=== PATIENT | female | born 1960 | race Caucasian/White ===

== ENCOUNTER → 2017-06-01 10:02 | Outpatient (CLI) | payer OTHER, SELFPAY ==
--- NOTE | 2017-06-01 10:09 | XR_ITS ---
XR ankle RT min 3V COMPARISON: None HISTORY: Ankle pain TECHNIQUE: AP lateral and oblique views FINDINGS: The medial lateral malleolus appear intact iliac mortise is normal. There is mild diffuse soft tissue swelling both medially and laterally. There is a very tiny calcaneal spur at insertion of plantar tendon. IMPRESSION: Mild diffuse soft tissue swelling though if the patient is somewhat obese cyst could explain these findings as well. No acute bony abnormality is noted.
== END ==
PROVIDERS: PCP Family Medicine; Visit Provider Family Medicine
DX: M25.571 Pain in right ankle and joints of right foot (principal)
CPT/HCPCS: 73610

== ENCOUNTER → 2019-08-25 16:38 | Outpatient (CLI) | payer BC, SELFPAY ==
[2019-08-27 13:31] LABS: Covid-19 Nasal PCR Sendout Lex Not Detected
== END ==
PROVIDERS: PCP Family Medicine; Visit Provider Family Medicine
DX: Z03.818 Encounter for observation for suspected exposure to other biological agents ruled out (principal); Z11.59 Encounter for screening for other viral diseases
CPT/HCPCS: U0004

== ENCOUNTER → 2019-10-17 09:46 | Outpatient (CLI) | payer BC, OTHER, SELFPAY ==
--- NOTE | 2019-10-17 09:52 | CT_ITS ---
PROCEDURE: CT ABDOMEN PELVIS WO CON CLINICAL INDICATION: LLQ ABD PAIN Pt c/o llq pain with constipation and nausea COMPARISON: No exams were available for comparison TECHNIQUE: Axial images obtained with sagittal and coronal reformats. All CT scans at the facility use one or more dose reduction, viz: automated exposure control, ma/kV adjustment per patient size (including targeted exams where dose is matched to indication, i.e. head), or iterative reconstruction technique. FINDINGS: LOWER THORAX: There are atelectatic or fibrotic changes in the right middle lobe and left lower lobe. ABDOMEN & PELVIS: The liver, spleen adrenal glands, and pancreas have an unremarkable appearance. On image number 36 series 3 there is a calcific density posterior to the portal vein and may be within the cystic duct. This could be confirmed with MRCP. No renal or ureteral calculi. There is a prominent umbilical abdominal wall hernia containing a loop transverse colon. No intestinal obstruction or free air is evident. There is haziness of the mesenteric fat in the lower abdomen centrally and toward the right posterior to the region of the hernia. There are few small mesenteric lymph nodes in the right lower quadrant. No evidence of diverticulitis or appendicitis. No pelvic mass or abnormal fluid collection. No acute bony findings. IMPRESSION: 1. Prominent umbilical hernia containing a loop of transverse colon without evidence of intestinal obstruction. 2. Infiltration of the mesenteric fat in the central abdomen and slightly toward the right. This is nonspecific and could be seen with inflammatory/infectious changes. Neoplasm is not excluded and follow-up is suggested. Mesenteric adenitis is a consideration. 3. Possible small stone within the cystic duct of the gallbladder. This may be confirmed with MRCP. Dictated by: Yunier Barboza MD 10/18/2019 11:57 Yunier Barboza MD in [place] 10/18/2019 11:57
== END ==
PROVIDERS: PCP Family Medicine; Visit Provider Family Medicine
DX: R10.32 Left lower quadrant pain (principal)
CPT/HCPCS: 74176

== ENCOUNTER → 2021-06-06 07:42 | Outpatient (CLI) | payer BC, OTHER, SELFPAY ==
[2021-06-06 11:03] LABS: Alanine Aminotransferase 24 U/L (12-78); Albumin/Globulin Ratio 1.3 (1.1-1.8); Alkaline Phosphatase 73 U/L (38-126); Anion Gap 11.9 mEq/L (5-15); Aspartate Amino Transferase 27 U/L (14-36); Bilirubin,Total 0.8 mg/dl (0.2-1.3); Blood Urea Nitrogen 12 mg/dl (7-17); Calcium 9.1 mg/dl (8.4-10.2); Carbon Dioxide 27 mmol/L (22.0-30.0); Chloride 106 mmol/L (98-107); Chol/HDL Ratio 4.2 (1-3.5); Cholesterol 180 mg/dl (140-200); Estimated Glomerular Filt Rate 86 ml/min (>60); GFR (African American) 104 ML/MIN (>60); Globulin 3.2 g/dL (1.3-3.2); Glucose 109 mg/dl (74-100); HDL Cholesterol 43 mg/dl (40-60); Potassium 3.9 mmoL/L (3.5-5.1); Sodium 141 mmol/L (136-145); Total Protein,Serum 7.2 g/dl (6.3-8.2); Triglycerides 172 mg/dl (30-150); VLDL Cholesterol 34 mg/dL (0-40)
[2021-06-06 11:13] LABS: Direct LDL Cholesterol 90.41 mg/dL (100-129)
[2021-06-06 11:33] LABS: Thyroid Stimulating Hormone 0.06 uIU/mL (0.465-4.68)
== END ==
PROVIDERS: Visit Provider Family Medicine
DX: I10 Essential (primary) hypertension (principal); E78.5 Hyperlipidemia, unspecified; E03.9 Hypothyroidism, unspecified
CPT/HCPCS: 36415; 80053; 80061; 84443

== ENCOUNTER → 2021-11-28 15:41 | Outpatient (CLI) | payer BC, OTHER, SELFPAY | PROVIDERS: PCP Family Medicine; Visit Provider Family Medicine | DX: U07.1 COVID-19 (principal) | CPT/HCPCS: C9803; U0003; U0005 ==

== ENCOUNTER → 2023-01-05 09:37 | Outpatient (CLI) | payer BC, OTHER, SELFPAY ==
--- NOTE | 2023-01-05 09:45 | MM_ITS ---
PROCEDURE INFORMATION: Exam: MG Bilateral Screening 3D Mammography Exam date and time: 01/05/2023 9:52 AM Age: 62 years old Clinical indication: Screening examination. Her mother had breast cancer in her 60s. TECHNIQUE: Imaging protocol: Bilateral Screening tomosynthesis and 2D mammography including computer-aided detection (CAD) when performed. COMPARISON: No relevant prior studies available. If prior mammograms are provided, I am happy to add an addendum. FINDINGS: MAMMOGRAPHY: Breast composition: There are scattered areas of fibroglandular density. Mass: No suspicious mass. Architectural distortion: None. Calcifications: No suspicious calcifications. Asymmetric density: None. Skin thickening: None. Axillary adenopathy: None. IMPRESSION: No mammographic evidence of malignancy. Annual screening is recommended unless otherwise clinically indicated. ASSESSMENT: BI-RADS Category 1: Negative
== END ==
PROVIDERS: PCP Family Medicine; Visit Provider Family Medicine
DX: Z12.31 Encounter for screening mammogram for malignant neoplasm of breast (principal)
CPT/HCPCS: 77063; 77067

== ENCOUNTER → 2023-02-21 10:10 | Outpatient (CLI) | payer BC, OTHER, SELFPAY ==
[2023-02-21 11:57] LABS: Blood Urea Nitrogen 11 mg/dl (7-17); Estimated Glomerular Filt Rate 73 ml/min (>60); GFR (African American) 89 ML/MIN (>60)
== END ==
PROVIDERS: PCP Family Medicine; Visit Provider Surgery
DX: K42.9 Umbilical hernia without obstruction or gangrene (principal)
CPT/HCPCS: 82565; 84520

== ENCOUNTER 2023-02-28 12:42 | Outpatient (CLI) | payer BC, OTHER, SELFPAY ==
--- NOTE | 2023-02-28 12:42 | CT_ITS ---
FINAL REPORT CLINICAL HISTORY: umbilical hernia. COMPARISON: 10/17/2019 FINDINGS: CT OF THE ABDOMEN AND PELVIS WITH CONTRAST Axial CT images of the abdomen and pelvis were obtained after the administration of oral and iv contrast. Coronal and sagittal reformatted images were also obtained and reviewed.This study was performed with techniques to keep radiation doses as low as reasonably achievable (ALARA). Individualized dose reduction techniques using automated exposure control or adjustment of mA and/or kV according to the patient's size were employed. Abdomen: Mild atelectasis versus scar is present in the lung bases.. The heart is normal in size. The liver has an unremarkable appearance, without evidence of mass or biliary ductal dilatation. The spleen is unremarkable. No adrenal mass is present. The pancreas has an unremarkable appearance. The kidneys are normal, without evidence of mass or hydronephrosis. The aorta is normal in caliber. There is no free fluid or adenopathy. There is a large umbilical hernia present, also seen on the prior CT of 2019. There is nonobstructed transverse colon present in the hernia sac. The orifice of the hernia measures 39 mm in diameter, which is stable since the prior exam of 2019. However there is enlargement in the diameter of the sac, measuring 130 mm on today's examination. Pelvis: The appendix is not well-visualized. The urinary bladder is unremarkable. No inflammatory process is seen. There is no evidence of mass or adenopathy. There is no evidence of bowel obstruction. IMPRESSION: Large umbilical hernia, with the orifice stable in size when compared to the prior exam, but the diameter of the hernia sac has enlarged. Reviewed, Interpreted and Dictated by Seven Qureshi III, MD Transcribed by Pamela Travis Authenticated and [facility]
[2023-02-28] MEDS: BARIUM SULFATE(READI-CAT2);450ML BOTTLE 450 ML PO (13:43)
[2023-02-28] MEDS: IOPAMIDOL-370 (76%);100ML BOTTLE 75 ML IV (13:43)
== END 2023-02-28 23:59 ==
LOC: RAD 12:42
PROVIDERS: PCP Family Medicine; Visit Provider Surgery
DX: K42.9 Umbilical hernia without obstruction or gangrene (principal)
CPT/HCPCS: 74177; Q9967

== ENCOUNTER 2023-03-23 08:39 | Outpatient (CLI) | payer BC, OTHER, SELFPAY ==
--- NOTE | 2023-03-23 08:48 | ECG_ITS ---
APPROVED REPORT Exam: Resting ECG HR:63 bpm ECG Measurements Heart Rate 63 AXES ND 140 P 56 QRSd 88 QRS 52 QT 419 T 59 QTc 427 Conclusion SINUS RHYTHM LOW QRS VOLTAGE IN PRECORDIAL LEADS [QRS DEFLECTION < 1.0 mV IN CHEST LEADS] BORDERLINE ECG UNCONFIRMED REPORT Electronically signed by : Dain Willis MD 03/23/2023 14:35:25
[2023-03-23 09:15] LABS: Basophils # 0.1 K/mm3 (0-0.2); Basophils % 0.9 % (0.1-2.0); Eosinophils # 0.2 K/mm3 (0.0-0.4); Eosinophils % 3.4 % (0.1-12.0); Hematocrit 47.5 % (37.0-47.0); Hemoglobin 16.4 g/dL (12.2-16.2); Lymphocytes # 2.1 K/mm3 (0.7-4.5); Lymphocytes % 41.8 % (10-50); Mean Corpuscular HGB Conc 34.4 g/dL (31.8-35.4); Mean Corpuscular Hemoglobin 29.9 pg (27.0-31.2); Mean Platelet Volume 7.1 fl (7.4-10.4); Monocytes # 0.3 K/mm3 (0.1-1.0); Monocytes % 5.6 % (1.7-9.3); Neutrophils # 2.4 K/mm3 (1.8-7.8); Neutrophils % 48.2 % (37.0-80.0); Platelet Count 234 K/mm3 (142-424); Red Blood Count 5.46 M/mm3 (4.20-5.40); Red Cell Distribution Width 13.7 % (11.5-17.5)
[2023-03-23 09:50] LABS: Blood Urea Nitrogen 10 mg/dl (7-17); Calcium 9.8 mg/dl (8.4-10.2); Carbon Dioxide 27 mmol/L (22.0-30.0); Chloride 104 mmol/L (98-107); Estimated Glomerular Filt Rate 73 ml/min (>60); GFR (African American) 88 ML/MIN (>60); Glucose 113 mg/dl (74-100); Sodium 140 mmol/L (136-145)
== END 2023-03-23 23:59 ==
LOC: LAB 08:40
PROVIDERS: PCP Family Medicine; Visit Provider Surgery
DX: K42.9 Umbilical hernia without obstruction or gangrene (principal)
CPT/HCPCS: 36415; 80048; 85025; 93005

== ENCOUNTER 2023-04-02 07:43 | Day surgery (SDC) | payer BC, OTHER, SELFPAY ==
--- NOTE | 2023-03-29 13:31 | SUR.PREOP ---
Attempted twice, as well as called pt's husbands # to pre op pt/ see if they are able to move up in the schedule. Unable to get ahold of anyone at this time. Will try again at later.
[2023-03-29 15:08] VITALS: BMI 34.4
[2023-04-02] VITALS (12 sets, daily range): BP systolic 88–153; BP diastolic 48–85; PULSE 53–107; RESP 14–18; TEMP 36.5–43; O2SAT 88–99
[2023-04-02] MEDS: LACTATED RINGERS 1000ML 1,000 ML 25 ML IV (07:54)
--- NOTE | 2023-04-02 08:11 | EXP.ANES.CKL ---
[facility] Disclaimer: The information contained in this section may have been updated after the patient was seen, as this information can be updated by other users. 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 Family history of cancer History of anxiety Hypertension Surgical History No significant past surgical history Family History Other Family history of cancer Social History Smoking Status: Never smoker alcohol intake: never substance use type: denies use current occupational status: retired Travel in the last 8 weeks: None [facility] Anesthesia Checklist Patient Identification Patient Identification: Arm Band and Verbal (Name & ) Structural Data Admitted From: Home Planned Operative Procedure/s: VHR Consent for Planned Operative Procedure(s) Verified: Yes Verified Documents: Surgical Consent and History and Physical NPO Status Verified Time NPO: 20:00 Chart Verification Results Verified: CBC, BMP and ECG Additional verifications Patient : No Anesthesia Reactions: No Hx Blood Transfusions: No Blood Transfusion Reaction: No Cardiovascular Assessment Heart Sounds: S1 & S2 Pulse Rhythm: Irregular Peripheral Edema: No Airway Assessment Mallampati Score:: Class II C-Spine Mobility Assessed: Yes (Limited extension) TMJ Mobility Assessed: Yes Dentition: Edentulous Neurological Assessment Level of Consciousness: Awake, Alert, Appropriate and Follows Commands Hx Seizures: No Numbness or tingling in extremities: No Anesthesia Plan Anesthesia Risk discussed: Yes Anesthesia Plan: Verified ASA Class: III Anesthesia Type: General
[2023-04-02] MEDS: LIDOCAINE 1% 20ML MDV 20 ML ×2 (09:39)
[2023-04-02] MEDS: ROPIVACAINE 0.5% 30ML VIAL 150 MG (09:39)
[2023-04-02] MEDS: CEFAZOLIN SODIUM 2 GM in 0.9 % SODIUM CHLORIDE 100 ML IV (09:58)
[2023-04-02] MEDS: CLINDAMYCIN PHOSPHATE/D5W 900 MG/50 ML PIGGYBACK 50 MG (11:43)
--- NOTE | 2023-04-02 12:03 | SUR.OPER ---
1200- patient family updated about patients current status via Anika Robins.
--- NOTE | 2023-04-02 12:41 | P.OP_ITS ---
Date of procedure: 04/02/23 Pre-op Diagnosis:: Ventral hernia Post-op Diagnosis:: Chronically incarcerated ventral hernia containing large amount of omentum and transverse colon Procedure performed:: Laparoscopic ventral hernia repair with placement of 15.2 cm circular Bard Ventralight mesh Surgeon:: Seven Freeman MD Anesthesia: JOSELO Estimated blood loss (mL): 15 Clinical Note:: Patient presents for ventral hernia repair. Patient presented to the office essentially as a self-referral for umbilical hernia. Her primary care provider is Chandra Fernández MD. She describes an umbilical hernia present for many years. She states that it was present since the of her child. She has never had surgery. It had never caused her any problems but she states that over the past 5 to 6 years it has increased in size. She has had some discomfort at the area over about 6 months. 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 She states that this seems to exacerbate the discomfort. She did undergo CT scan about 3 years ago in September 2019 which revealed prominent umbilical hernia containing a loop of transverse colon. Review of these films appear to show approximately a 4.5 cm defect. Given the several year duration between last CT scan she underwent repeat CT scan. CT scan reveals stable size of the hernia defect measuring about 4 cm. However hernia sac has increased in size. She has a loop of nonobstructing transverse colon present. Options were discussed with the patient. Plan was made for attempt at laparoscopic repair. Operative findings:: She had a defect measuring about 4 or 5 cm. However there was a large hernia sac with an incredibly significant amount of herniated omentum as well as loop of transverse colon. Operative note:: Consent was obtained patient was taken to the operating room. She was given preoperative intravenous antibiotic. In the operating room she was placed in a supine position. General anesthesia was induced via endotracheal tube. Abdomen was prepped and draped in the standard surgical fashion. Through left subcostal 5 mm incision optical trocar was inserted. Intra-abdominal contents were visualized. Additional 5 mm trocar was inserted in the left lower abdomen. Hernia was identified. There was herniated omentum. Some traction was placed after it was grasped with a [place] and minimal amount was reduced. Ultimately additional left lower abdominal 5 mm trocar, 12 mm right subcostal trocar, and right lower quadrant 5 mm trocars were placed. Very prolonged attempt was made at reducing the hernia contents. This was done carefully meticulously as there was noted to be transverse colon herniated as well. After approximately 1-1/2 hours of careful dissection hernia contents in their entirety were able to be reduced. Inspection was then carried out of the large amount of omentum which was present within the hernia sac as well as the transverse colon was carefully inspected. There was no obvious notable injury. Therefore at this time attention was turned to repair. She did have a very large hernia sac although the defect was moderate. Hernia sac was left in situ as resection of this pr nilsa virtually impossible. A 6 inch circular (15.2 cm) Bard Ventralight mesh was brought on the field. The anterior abdominal wall was marked for placement site. It was rolled and inserted into the peritoneal cavity through the 12 mm trocar site. The balloon positioning system insufflation tubing was brought through the midportion of the hernia through a tiny less than 1 mm incision over the hernia. Balloon positioning system was inflated. Mesh was secured around its periphery with the OPTi fix device placing several tacks in 4 corners. Once it was secured the balloon positioning system was deflated and removed through the 12 mm trocar site. Mesh was then secured around its periphery with the OPTi fix device with several tacks placed more medially to help eliminate space over the mesh. Repair appeared adequate with good overlap. The 12 mm trocar was then removed. The site was closed with the laparoscopic Ananda close device. Remaining trocars were then removed as CO2 pneumoperitoneum was evacuated. All incisions were closed with 4-0 Monocryl in a subcuticular fashion after injection of local anesthetic. Dermabond was applied. Large bulky pressure dressing was placed at the site of the hernia. Condition: stable Disposition: PACU Complications:: None immediately apparent
--- NOTE | 2023-04-02 12:47 | EXP.ANES.I ---
[facility] Anesthesia Record Part I Anesthesia Record I Intake, IV Amount: 1,500 Hydration: Adequate Estimated blood loss (mL): 100 Urine output (mL): 100 Blood Products used (#): none Blood Pressure: 114/72 SaO2: 90 Pulse Rate: 61 Airway Patency: Patent Respiratory Rate: 16 Temperature: 97.8 F Patient is:: Drowsy and Stable Stable to PACU at:: 12:41
--- NOTE | 2023-04-02 13:33 | SUR.PHASEII ---
1325 SHIMON Casey aware of bp. she is at bedside.
--- NOTE | 2023-04-05 08:52 | EXP.ANES.II ---
[facility] Anesthesia Record Part II Anesthesia Record Part II Discharge Time: 13:06 Destination: Surgical Day Care (OP Surgery) PACU nurse assessment reviewed?: Yes Patient Condition:: Good Anesthesia Complications:: None Swallowing reflex intact?: Yes Airway Patency: Patent Cyanosis?: No Blood Pressure: 109/69 SaO2: 94 Respiratory Rate: 18 Pulse Rate: 68 Temperature: 97.7 F Mental Status: Alert & Oriented Pain level:: 0 Nausea and/or vomitting:: None Intake, IV Amount: 0 Hydration: Adequate
[2023-04-05 08:53] VITALS: BP 109/69; PULSE 68; RESP 18; TEMP 36.5; O2SAT 94
== END 2023-04-02 14:13 | disposition home or self-care (01) ==
PROVIDERS: PCP Family Medicine; Visit Provider Surgery
PROC: 0WQF4ZZ Repair Abdominal Wall, Percutaneous Endoscopic Approach (ICD-10-PCS; CPT 49594; principal; 2023-04-02 09:15)
DX: K43.6 Other and unspecified ventral hernia with obstruction, without gangrene (principal)
CPT/HCPCS: 49594; 96374; J3490; C1781; J0131; J2405

== ENCOUNTER 2023-05-29 09:58 | Outpatient (CLI) | payer BC, OTHER, SELFPAY ==
[2023-05-29 10:22] LABS: Basophils # 0.1 K/mm3 (0-0.2); Eosinophils # 0.1 K/mm3 (0.0-0.4); Eosinophils % 1.5 % (0.1-12.0); Hematocrit 40.9 % (37.0-47.0); Hemoglobin 13.6 g/dL (12.2-16.2); Lymphocytes # 1.6 K/mm3 (0.7-4.5); Lymphocytes % 23.9 % (10-50); Mean Corpuscular HGB Conc 33.3 g/dL (31.8-35.4); Mean Corpuscular Hemoglobin 28.8 pg (27.0-31.2); Mean Corpuscular Volume 86.3 fl (81-99); Mean Platelet Volume 7.2 fl (7.4-10.4); Monocytes # 0.4 K/mm3 (0.1-1.0); Monocytes % 5.6 % (1.7-9.3); Neutrophils # 4.6 K/mm3 (1.8-7.8); Platelet Count 364 K/mm3 (142-424); Red Blood Count 4.74 M/mm3 (4.20-5.40); Red Cell Distribution Width 13.9 % (11.5-17.5); White Blood Count 6.8 K/mm3 (4.8-10.8)
[2023-05-29 10:47] LABS: Alanine Aminotransferase 16 U/L (12-78); Albumin Level 3.9 g/dl (3.5-5.0); Albumin/Globulin Ratio 1.1 (1.1-1.8); Alkaline Phosphatase 85 U/L (38-126); Anion Gap 10.9 mEq/L (5-15); Aspartate Amino Transferase 23 U/L (14-36); Bilirubin,Total 0.6 mg/dl (0.2-1.3); Blood Urea Nitrogen 8 mg/dl (7-17); Calcium 9.8 mg/dl (8.4-10.2); Carbon Dioxide 26 mmol/L (22.0-30.0); Chloride 106 mmol/L (98-107); Estimated Glomerular Filt Rate 85 ml/min (>60); GFR (African American) 103 ML/MIN (>60); Globulin 3.4 g/dL (1.3-3.2); Glucose 109 mg/dl (74-100); Potassium 3.9 mmoL/L (3.5-5.1); Sodium 139 mmol/L (136-145); Total Protein,Serum 7.3 g/dl (6.3-8.2)
== END 2023-05-29 23:59 ==
LOC: LAB 09:59
PROVIDERS: PCP Family Medicine; Visit Provider Surgery
DX: K42.9 Umbilical hernia without obstruction or gangrene (principal)
CPT/HCPCS: 36415; 80053; 85025

== ENCOUNTER 2023-05-30 14:24 | Outpatient (CLI) | payer BC, OTHER, SELFPAY ==
--- NOTE | 2023-05-30 14:32 | CT_ITS ---
FINAL REPORT TECHNIQUE: After the administration of oral and intravenous contrast, axial images were obtained through the abdomen and pelvis by computed tomography. The study was performed with techniques to keep radiation dose as low as reasonably achievable, (ALARA). Individual dose reduction techniques using automated exposure control or adjustment of mA and/or kV according to the patient's size were employed. CLINICAL HISTORY: umbilical hernia COMPARISON: 02/28/2023 FINDINGS: Abdomen: There is mild scarring in the lung bases. The liver is normal in size and attenuation. The spleen is unremarkable. The adrenals are normal. The pancreas is unremarkable. The kidneys enhance appropriately. The aorta is normal in caliber. There is no free fluid or adenopathy. Pelvis: The appendix is normal. There has been interval repair of the umbilical hernia. In the region of the hernia sac is a 12 x 8 x 9.6 cm heterogeneous fluid collection, likely represents a hematoma. Abscess is not excluded. The urinary bladder is unremarkable. There is no free fluid or adenopathy. IMPRESSION: Interval repair of the umbilical hernia with a heterogeneous fluid collection in this region, likely represents a hematoma but abscess is not excluded. Since this is immediately below the skin, it is accessible to drainage if desired. Reviewed, Interpreted and Dictated by Seven Qureshi III, MD Transcribed by Dora Negron Authenticated and [facility]
[2023-05-30] MEDS: IOPAMIDOL-370 (76%);100ML BOTTLE 75 ML IV (15:08)
[2023-05-30] MEDS: SODIUM CHLORIDE 0.9% 10ML SYR (RAD ONLY) 10 ML IV (15:08)
[2023-05-30] MEDS: BARIUM SULFATE(READI-CAT2);450ML BOTTLE 450 ML PO (15:08)
== END 2023-05-30 23:59 ==
LOC: RAD 14:25
PROVIDERS: PCP Family Medicine; Visit Provider Surgery
DX: K42.9 Umbilical hernia without obstruction or gangrene (principal)
CPT/HCPCS: 74177; Q9967

== ENCOUNTER 2023-08-04 09:50 | Emergency (ER) | payer BC, OTHER, SELFPAY ==
[2023-08-04 10:20] VITALS: BP 110/80; PULSE 93; RESP 20; TEMP 37.1; O2SAT 97; BMI 32.5
--- NOTE | 2023-08-04 10:33 | ED_ITS ---
Discharge Plan Disposition Patient Disposition: Home, Self-Care Condition: Good Prescriptions Prescriptions: New azithromycin 250 mg tablet 250 mg PO DIRECTED Qty: 6 0RF Rx Instructions: Take two (2) tablets on day #1, then one (1) tablet day #2 thru #5 prednisone 20 mg tablet 20 mg PO BID Qty: 10 0RF No Action levothyroxine 100 mcg tablet 100 mcg PO DAILY Patient Comments: TAKE ONE TABLET BY MOUTH EVERY DAY amlodipine-benazepril 10-20 mg capsule 1 cap PO DAILY Patient Comments: TAKE ONE CAPSULE BY MOUTH EVERY DAY sertraline 25 mg tablet 25 mg PO DAILY Patient Comments: TAKE ONE TABLET BY MOUTH ONCE DAILY pantoprazole 40 mg tablet,delayed release (DR/EC) 40 mg PO DAILY pravastatin 40 mg tablet 40 mg PO DAILY Referrals Follow up/Referrals: Cecilio Fernández MD [Primary Care Provider] - See instructions Activity Restrictions/Add. Instructions Additional Instructions/Restrictions: Start antibiotic patient to take as ordered for a full length of time even if you feel better. Sinus infections do not get better overnight. It may take 2-3 days to notice much improvement so be sure to use conservative measures as discussed for symptoms. Increase fluids Humidifier/vaporizer as needed Tylenol and ibuprofen as needed for fever or pain. If symptoms do not improve or get worse return or be seen in the ER Follow-up with primary care this week Clinical Impressions Clinical Impression: Acute maxillary sinusitis, Bronchitis Instructions Patient Instructions: DI for Sinusitis, DI for Acute Bronchitis Discharge ED Provider: [facility] ([facility])Abiodun [facility] HPI General Stated complaint: cough, congestion Mode of Arrival: Ambulatory Source of Information: Patient Limitations: No Limitations Time Seen by Provider: 08/04/23 10:33 Description of Symptoms (Recalled from Triage Doc. by RN): PATIENT C/O HEADACHE, CHEST CONGESTION, AND COUGH X 3 DAYS HEENT Symptoms (Recalled from RN notes): Yes Resp Symptoms (Recalled from RN notes): Yes Skin Symptoms (Recalled from RN notes): No MS Symptoms (Recalled from RN notes): No Functional Status (Recalled from RN notes): WNL History of Present Illness Provider Complaint: 63 yr old female presents for c/o sinus pressure, coughing up green/yellow sputum,kimble and sinus congestion for 3 days Related Data Home Medications Medication Instructions Recorded Confirmed amlodipine 10 mg-benazepril 20 mg 1 cap PO DAILY 02/21/23 08/04/23 capsule levothyroxine 100 mcg tablet 100 mcg PO DAILY 02/21/23 08/04/23 pantoprazole 40 mg tablet,delayed 40 mg PO DAILY 02/21/23 08/04/23 release pravastatin 40 mg tablet 40 mg PO DAILY 02/21/23 08/04/23 sertraline 25 mg tablet 25 mg PO DAILY 02/21/23 08/04/23 Previous Rx's Medication Instructions Recorded azithromycin 250 mg tablet 250 mg PO DIRECTED #6 tabs 08/04/23 prednisone 20 mg tablet 20 mg PO BID #10 tabs 08/04/23 Allergies Allergy/AdvReac Type Severity Reaction Status Date / Time No Known Allergies Allergy Verified 06/28/23 11:18 Worker's Comp Is this a Worker's Comp case?: No [facility] Disclaimer: The information contained in this section may have been updated after the patient was seen, as this information can be updated by other users. 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) Smoking Status: Never smoker alcohol intake: never substance use type: denies use current occupational status: retired Travel in the last 8 weeks: None ROS Obtained: Yes All systems reviewed & no additional complaints except as documented Constitutional Constitutional: Reports system reviewed and no additional complaints, except as documented Eyes Eyes: Reports system reviewed and no additional complaints, except as documented ENT Ears, Nose, Mouth, and Throat: Reports system reviewed and no additional complaints, except as documented, Reports as per HPI, Reports facial pain, Reports nasal congestion, Reports nasal discharge, Reports sinus pain, Reports sinus pressure and Reports sore throat Cardiovascular Cardiovascular: Reports system reviewed and no additional complaints, except as documented Respiratory Respiratory: Reports system reviewed and no additional complaints, except as documented Gastrointestinal Gastrointestingal: Reports system reviewed and no additional complaints, except as documented Musculoskeletal Musculoskeletal: Reports system reviewed and no additional complaints, except as documented Integumentary/Breasts Skin/Breast: Reports system reviewed and no additional complaints, except as documented Neurologic Neurologic: Reports system reviewed and no additional complaints, except as documented Endocrine Endocrine: Reports system reviewed and no additional complaints, except as documented Hematologic/Lymphatic Henatologic/Lymphatic: Reports system reviewed and no additional complaints, except as documented Allergic/Immunologic Allergic/Immunologic: Reports system reviewed and no additional complaints, except as documented Physical Exam General General appearance: alert and in no apparent distress Head Head exam: atraumatic Eye Eye exam: Present normal appearance and PERRL ENT ENT exam: Present mucous membranes moist and TM's normal bilaterally Expanded ENT Exam Nose exam: Present sinus tenderness Respiratory Respiratory exam: Present wheezes Cardiovascular Cardiovascular exam: Present regular rate and normal rhythm Neurological Exam Neurological exam: Present alert and oriented X3 Psychiatric Psychiatric exam: Present normal affect Skin Skin exam: Present warm and intact Lymphatic Lymphatic Findings: no adenopathy Medical Decision Making Medical Records Medical records reviewed: Yes I reviewed the patient's medical records. Javier Inquiry Pt receiving controlled substance: No Javier was queried for this patient: No Vital Signs: 08/04/23 10:20 Temperature 98.7 F Temperature Source Oral Pulse Rate [Left Brachial] 93 H Respiratory Rate 20 Blood Pressure [Left Arm] 110/80 Blood Pressure Mean [Left Arm] 90 Blood Pressure Source [Left Arm] Automatic Cuff Blood Pressure Position [Left Arm] Sitting 02 Sat by Pulse Oximetry 97 Oxygen Delivery Method Room Air
[2023-08-04 10:50] VITALS: BP 110/80; PULSE 93; RESP 20; TEMP 37.1; O2SAT 97
[2023-08-04 20:09] LABS: UTC Strep Screen (Rapid) Negative (Negative)
== END 2023-08-04 10:54 | disposition home or self-care (01) ==
PROVIDERS: Emergency Provider Nurse Practitioner Family; PCP Family Medicine
DX: J20.9 Acute bronchitis, unspecified (principal); J01.00 Acute maxillary sinusitis, unspecified; R51.9 Headache, unspecified; R05.9 Cough, unspecified; R09.81 Nasal congestion
CPT/HCPCS: 87880; 99204; 99212; G0463

== ENCOUNTER 2023-09-06 11:22 | Outpatient (CLI) | payer BC, OTHER, SELFPAY ==
[2023-09-06 11:41] LABS: Blood Urea Nitrogen 8 mg/dl (7-17); Estimated Glomerular Filt Rate 73 ml/min (>60); GFR (African American) 88 ML/MIN (>60)
== END 2023-09-06 23:59 | disposition home or self-care (01) ==
LOC: LAB 11:23
PROVIDERS: PCP Family Medicine; Visit Provider Surgery
DX: R10.9 Unspecified abdominal pain (principal)
CPT/HCPCS: 36415; 82565; 84520

== ENCOUNTER 2023-09-21 08:27 | Outpatient (CLI) | payer BC, OTHER, SELFPAY ==
--- NOTE | 2023-09-21 08:28 | CT_ITS ---
FINAL REPORT TECHNIQUE: Oral and IV contrast enhanced exam This study was performed with techniques to keep radiation doses as low as reasonably achievable, (ALARA). Individualized dose reduction techniques using automated exposure control or adjustment of mA and/or kV according to the patient''s size were employed. CLINICAL HISTORY: left flank pain COMPARISON: 05/30/2023 FINDINGS: Abdomen: Lung bases are clear. The gallbladder is unremarkable. Liver has an unremarkable CT appearance. The spleen, pancreas and adrenal glands are unremarkable. Kidneys show no mass or obstruction. No bowel obstruction or fluid collection is seen. There is a new midline abdominal wall hernia containing transverse colon. No associated obstruction identified. The hernia abuts a complex cystic mass of the abdominal wall. Lesion has a mildly thickened capsule. The mass measures 7.6 x 6.4 cm, was 12.8 x 9.6 cm. Pelvis: There is a alisa appendix as a normal variant. The uterus and ovaries are unremarkable. The bladder is normal. Pelvic bowel loops are unremarkable. No fluid collection or adenopathy is seen. IMPRESSION: Interval development of a lower central midline abdominal wall hernia containing transverse colon without obstruction. Decreased size of complex cystic mass of the abdominal wall. Reviewed, Interpreted and Dictated by Zoila Mccollum MD Transcribed by Dora Negron Authenticated and . [facility]
[2023-09-21] MEDS: IOPAMIDOL-370 (76%);100ML BOTTLE 75 ML IV (08:50)
[2023-09-21] MEDS: SODIUM CHLORIDE 0.9% 10ML SYR (RAD ONLY) 10 ML IV (08:50)
== END 2023-09-21 23:59 | disposition home or self-care (01) ==
LOC: RAD 08:28
PROVIDERS: PCP Surgery; Visit Provider Surgery
DX: K42.9 Umbilical hernia without obstruction or gangrene (principal); R10.9 Unspecified abdominal pain
CPT/HCPCS: 74177; Q9967

== ENCOUNTER 2023-12-08 08:55 | Emergency (ER) | payer BC, OTHER, SELFPAY ==
--- NOTE | 2023-12-08 09:07 | EXP.UTC ---
Discharge Plan Disposition Patient Disposition: Home, Self-Care Condition: Good Prescriptions Prescriptions: New amoxicillin-pot clavulanate 875-125 mg tablet 1 tab PO Q12H 10 Days Qty: 20 0RF No Action levothyroxine 100 mcg tablet 100 mcg PO DAILY Patient Comments: TAKE ONE TABLET BY MOUTH EVERY DAY amlodipine-benazepril 10-20 mg capsule 1 cap PO DAILY Patient Comments: TAKE ONE CAPSULE BY MOUTH EVERY DAY sertraline 25 mg tablet 25 mg PO DAILY Patient Comments: TAKE ONE TABLET BY MOUTH ONCE DAILY pantoprazole 40 mg tablet,delayed release (DR/EC) 40 mg PO DAILY pravastatin 40 mg tablet 40 mg PO DAILY Referrals Follow up/Referrals: Cecilio Fernández MD [Primary Care Provider] - See instructions Activity Restrictions/Add. Instructions Additional Instructions/Restrictions: Take medication as prescribed. Suck on some sour candy. Return to the ER if you have swelling that goes down in your neck/under your tongue, fever, pain making it hard for you to open your mouth. Take Tylenol/Ibuprofen as needed for pain. Clinical Impressions Clinical Impression: Acute parotitis Instructions Patient Instructions: DI for Parotitis-Adult Print Language Print Language: Irish Discharge ED Provider: Chandni Hilton [facility] General Stated complaint: right face pain pain and swollen, jaw pain Time Seen by Provider: 12/08/23 09:29 History of Present Illness Provider Complaint: Pt reports that she started having swelling on the right side of her face yesterday with pain in her jaw. She reports that she has been taking Tylenol/Ibuprofen for the pain. Related Data Home Medications ?Medication ?Instructions ?Recorded ?Confirmed amlodipine 10 mg-benazepril 20 mg 1 cap PO DAILY 02/21/23 12/08/23 capsule levothyroxine 100 mcg tablet 100 mcg PO DAILY 02/21/23 12/08/23 pantoprazole 40 mg tablet,delayed 40 mg PO DAILY 02/21/23 12/08/23 release pravastatin 40 mg tablet 40 mg PO DAILY 02/21/23 12/08/23 sertraline 25 mg tablet 25 mg PO DAILY 02/21/23 12/08/23 Previous Rx's ?Medication ?Instructions ?Recorded amoxicillin 875 mg-potassium 1 tab PO Q12H 10 days #20 tabs 12/08/23 clavulanate 125 mg tablet Allergies Allergy/AdvReac Type Severity Reaction Status Date / Time No Known Allergies Allergy Verified 10/16/23 08:43 [facility] Disclaimer: The information contained in this section may have been updated after the patient was seen, as this information can be updated by other users. 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 Family history of cancer History of anxiety Hypertension Surgical History History of hernia surgery No significant past surgical history Family History Other Family history of cancer Social History Smoking Status: Never smoker alcohol intake: never substance use type: denies use current occupational status: retired Travel in the last 8 weeks: None ROS Obtained: Yes All systems reviewed & no additional complaints except as documented Constitutional Constitutional: Reports system reviewed and no additional complaints, except as documented Eyes Eyes: Reports system reviewed and no additional complaints, except as documented ENT Ears, Nose, Mouth, and Throat: Reports system reviewed and no additional complaints, except as documented, Reports otalgia and Reports facial pain Cardiovascular Cardiovascular: Reports system reviewed and no additional complaints, except as documented Respiratory Respiratory: Reports system reviewed and no additional complaints, except as documented Gastrointestinal Gastrointestingal: Reports system reviewed and no additional complaints, except as documented Genitourinary Female Genitourinary: Reports system reviewed and no additional complaints, except as documented Musculoskeletal Musculoskeletal: Reports system reviewed and no additional complaints, except as documented Integumentary/Breasts Skin/Breast: Reports system reviewed and no additional complaints, except as documented Neurologic Neurologic: Reports system reviewed and no additional complaints, except as documented Endocrine Endocrine: Reports system reviewed and no additional complaints, except as documented Hematologic/Lymphatic Henatologic/Lymphatic: Reports system reviewed and no additional complaints, except as documented Allergic/Immunologic Allergic/Immunologic: Reports system reviewed and no additional complaints, except as documented Physical Exam General General appearance: alert and in no apparent distress Head Head exam: atraumatic and normocephalic Eye Eye exam: Present normal appearance Expanded ENT Exam External ear exam: Present other (swelling of right parotid gland. Pain expressed with palpitation) TM/Canal exam: Right TM: effusion Nasal speculum exam: Bilateral: normal Mouth exam: Present trismus (hurts when she opens her mouth, but is able to open) Teeth exam: Present other (no teeth) Throat exam: Present normal inspection Neck Neck exam: Present normal inspection Chest Chest inspection: Present normal inspection and symmetric chest wall rise Respiratory Respiratory exam: Present normal lung sounds bilaterally Cardiovascular Cardiovascular exam: Present regular rate and normal rhythm Abdominal Exam Abdominal exam: Present soft Extremities Exam Extremities exam: Present normal inspection Back Exam Back exam: Present normal inspection Neurological Exam Neurological exam: Present alert and oriented X3 Psychiatric Psychiatric exam: Present normal affect and normal mood Skin Skin exam: Present warm, dry and intact Lymphatic Lymphatic Findings: no adenopathy Medical Decision Making Medical Records Screening: Per USPSTF and CDC recommendations, given the prevalence of disease in our region, it is our hospital?s policy to screen for HIV and viral Hepatitis for all patients aged 18 and over and those with ongoing risk factors. Javier Inquiry Pt receiving controlled substance: No Javier was queried for this patient: No
[2023-12-08 09:09] VITALS: BP 143/58; PULSE 95; RESP 20; TEMP 37; O2SAT 98; BMI 33.6
[2023-12-08 10:00] VITALS: BP 143/58; PULSE 95; RESP 20; TEMP 37
== END 2023-12-08 10:03 | disposition home or self-care (01) ==
PROVIDERS: Emergency Provider Nurse Practitioner Family; PCP Family Medicine
DX: K11.0 Atrophy of salivary gland (principal)
CPT/HCPCS: 99213; G0381

== ENCOUNTER 2023-12-21 11:31 | Outpatient (CLI) | payer BC, OTHER, SELFPAY ==
--- NOTE | 2023-12-21 12:01 | ECG_ITS ---
APPROVED REPORT Exam: Resting ECG HR:56 bpm ECG Measurements Heart Rate 56 AXES MN 125 P 46 QRSd 89 QRS 24 QT 458 T 73 QTc 449 Conclusion SINUS BRADYCARDIA LOW QRS VOLTAGE IN PRECORDIAL LEADS [QRS DEFLECTION < 1.0 mV IN CHEST LEADS] NONSPECIFIC T-WAVE ABNORMALITY BORDERLINE ECG UNCONFIRMED REPORT Electronically signed by : Dain Willis MD 12/24/2023 08:39:52
[2023-12-21 12:18] LABS: Basophils # 0.1 K/mm3 (0-0.2); Basophils % 1.4 % (0.1-2.0); Eosinophils # 0.1 K/mm3 (0.0-0.4); Eosinophils % 2.1 % (0.1-12.0); Hematocrit 44.3 % (37.0-47.0); Hemoglobin 15.5 g/dL (12.2-16.2); Lymphocytes # 2.3 K/mm3 (0.7-4.5); Lymphocytes % 35.6 % (10-50); Mean Corpuscular HGB Conc 35.1 g/dL (31.8-35.4); Mean Corpuscular Hemoglobin 29.2 pg (27.0-31.2); Mean Corpuscular Volume 83.2 fl (81-99); Mean Platelet Volume 7.1 fl (7.4-10.4); Monocytes # 0.4 K/mm3 (0.1-1.0); Neutrophils # 3.5 K/mm3 (1.8-7.8); Neutrophils % 54.9 % (37.0-80.0); Platelet Count 263 K/mm3 (142-424); Red Blood Count 5.33 M/mm3 (4.20-5.40); Red Cell Distribution Width 14.7 % (11.5-17.5); White Blood Count 6.4 K/mm3 (4.8-10.8)
[2023-12-21 12:23] LABS: Chloride 106 mmol/L (98-107)
[2023-12-21 12:24] LABS: Potassium 3.9 mmoL/L (3.5-5.1); Sodium 139 mmol/L (136-145)
[2023-12-21 12:27] LABS: Anion Gap 9.9 mEq/L (5-15); Blood Urea Nitrogen 11 mg/dl (7-17); Calcium 9.5 mg/dl (8.4-10.2); Carbon Dioxide 27 mmol/L (22.0-30.0); Estimated Glomerular Filt Rate 85 ml/min (>60); GFR (African American) 103 ML/MIN (>60); Glucose 105 mg/dl (74-100)
== END 2023-12-21 23:59 | disposition home or self-care (01) ==
LOC: PREOP 11:32
PROVIDERS: PCP Family Medicine; Visit Provider Surgery
DX: K42.9 Umbilical hernia without obstruction or gangrene (principal)
CPT/HCPCS: 80048; 85025; 93005

== ENCOUNTER 2023-12-31 07:44 | Day surgery (SDC) | payer BC, OTHER, SELFPAY ==
[2023-12-21 15:05] VITALS: BMI 33.6
[2023-12-31] VITALS (9 sets, daily range): BP systolic 88–146; BP diastolic 56–85; PULSE 62–97; RESP 12–17; TEMP 36.1–36.6; O2SAT 86–98
[2023-12-31] MEDS: LACTATED RINGERS 1000ML 1,000 ML 25 ML IV (07:59)
--- NOTE | 2023-12-31 08:02 | EXP.ANES.CKL ---
[facility] Disclaimer: The information contained in this section may have been updated after the patient was seen, as this information can be updated by other users. 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 Urinary tract infection History of COVID-19 Irritable bowel syndrome (IBS) History of gastroesophageal reflux (GERD) Hypothyroid History of cataract Hyperlipidemia Family history of cancer History of anxiety Hypertension Surgical History History of hernia surgery Family History Other Family history of cancer Family history of diabetes mellitus type II Family history of hypothyroidism Family history of myocardial infarction Family history of ulcerative colitis Social History Smoking Status: Never smoker alcohol intake: never substance use type: denies use current occupational status: employed Travel in the last 8 weeks: None household members: spouse 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 caffeine: Yes [facility] Anesthesia Checklist Patient Identification Patient Identification: Arm Band and Verbal (Name & ) Structural Data Admitted From: Home Planned Operative Procedure/s: UHR Consent for Planned Operative Procedure(s) Verified: Yes Verified Documents: Surgical Consent NPO Status Verified Time NPO: 00:00 Chart Verification Results Verified: CBC, BMP and ECG Additional verifications Patient : No Anesthesia Reactions: No Hx Blood Transfusions: No Blood Transfusion Reaction: No Cephalosporin Allergy: No Cardiovascular Assessment Heart Sounds: S1 & S2 Peripheral Edema: No Airway Assessment Mallampati Score:: Class II C-Spine Mobility Assessed: Yes TMJ Mobility Assessed: Yes Dentition: Good Dentition Neurological Assessment Level of Consciousness: Awake, Alert, Appropriate and Follows Commands Hx Seizures: No Numbness or tingling in extremities: No Anesthesia Plan Anesthesia Risk discussed: Yes Anesthesia Plan: Verified ASA Class: III Anesthesia Type: General
[2023-12-31] MEDS: CEFAZOLIN SODIUM 2 GM in 0.9 % SODIUM CHLORIDE 100 ML IV (08:45)
[2023-12-31] MEDS: ROPIVACAINE 0.5% 30ML VIAL 150 MG (09:03)
[2023-12-31] MEDS: LIDOCAINE 1% 20ML MDV 20 ML (09:03)
--- NOTE | 2023-12-31 11:19 | P.OP_ITS ---
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 She had undergone laparoscopic ventral hernia repair on 04/02/2023 at which time she had placement of 15.[address] mesh for a 4 cm defect containing a large amount of omentum and transverse colon. She did have some issues with significant seroma which required aspiration on a couple of occasions. She has shown improvement in the apparent seroma. I did have her undergo a CT scan to check for any residual seroma. Interestingly this revealed findings of interval development of hernia containing nonobstructed transverse colon. This was discussed with her on her visit on 10/16/2023. I reviewed her CT scan and it appeared as though she likely had a defect measuring 3 x 5 cm. Operative findings:: She had some disruption of the mesh adherence to the fascia inferiorly with rec urrent hernia at the inferior aspect of the mesh with a defect measuring about 3 to 4 cm. There was chronically incarcerated omentum and some colon present within the defect. Operative note:: Consent was obtained and patient was taken the operating room. She was positioned in supine position. General anesthesia was induced via endotracheal tracheal tube. Naik catheter was placed. Abdomen was prepped and draped in the standard surgical fashion. Through left subcostal incision 5 mm optical trocar was inserted carefully into the peritoneal cavity and CO2 pneumoperitoneum was achieved to 15 mmHg. Laparoscopic surveillance was carried out. Most of the previously placed mesh was intact however the inferior aspect of the hernia there was some disruption of the mesh adherence to the fascia. Ultimately trocars were placed in the left lower quadrant with two 5 mm trocars, right subcostal 12 mm trocar, and ultimately right lower quadrant 5 mm trocar. Prolonged dissection was carried out dissecting free adhesions from the posterior aspect of the mesh using mostly blunt dissection with some use of KIMBER ultrasonic harmonic caitlyn. There was herniated transverse colon within the defect. Careful prolonged dissection was carried out using some blunt dissection, limited use of KIMBER ultrasonic harmonic caitlyn, and laparoscopic Metzenbaum dissection. Ultimately the contents of the hernia were able to be freed from the defect and returned to the peritoneal cavity. The skin was marked on the anterior abdomen with skin marker marking the fascial edges. Defect measured about 3 to 4 cm. Previously placed mesh was left in situ. Hernia sac was left in situ. 15.[address] mesh was brought onto the field. It was rolled and inserted into the peritoneal cavity. Through a tiny 1 or 2 mm incision in the central aspect of the hernia defect the positioning system insufflation tubing was brought through the anterior abdominal wall. Positioning system balloon was then inflated. This allowed mesh to be placed appropriately with good overlap. It covered the defect with generous overlap several centimeters off-center from previously placed mesh inferiorly. Mesh was secured in 4 corners using the OPTi fix device. The positioning system balloon was then removed from the peritoneal cavity. Mesh was secured around its periphery with the OPTi fix device. Several attacks were placed more centrally due to help eliminate space of the hernia. Repair appeared adequate. To reinforce the mesh overlapped position tiny incision was made at the upper aspect of the mesh and 2-0 Prolene fascial stay suture was placed using the [place] suture passer device. Similarly 2-0 Prolene fascial stay suture was placed inferiorly. Repair appeared adequate, intact, and hemostatic. Residual fluid was suctioned free. Incision in the right subcostal location was closed with a couple of 0 Vicryl sutures laparosc opically. Trocars were then removed as CO2 pneumoperitoneum was evacuated. Local anesthetic was infiltrated. Skin incisions were closed with 4-0 Monocryl in a subcuticular fashion. Steri-Strips and dressings were applied. Condition: stable Disposition: PACU Complications:: None immediately apparent
--- NOTE | 2023-12-31 11:29 | P.PNANES_ITS ---
[facility] Anesthesia Record Part I Anesthesia Record I Intake, IV Amount: 2,500 Hydration: Adequate Estimated blood loss (mL): 50 Urine output (mL): 250 Blood Pressure: 142/82 SaO2: 93 Pulse Rate: 81 Airway Patency: Patent Respiratory Rate: 12 Temperature: 97.3 F Patient is:: Awake and Stable Stable to PACU at:: 11:25
--- NOTE | 2024-01-02 10:21 | P.PNANES_ITS ---
[facility] Anesthesia Record Part II Anesthesia Record Part II Discharge Time: 11:55 Destination: Surgical Day Care (OP Surgery) PACU nurse assessment reviewed?: Yes Patient Condition:: Good Anesthesia Complications:: None Swallowing reflex intact?: Yes Airway Patency: Patent Cyanosis?: No Blood Pressure: 126/74 SaO2: 94 Respiratory Rate: 17 Pulse Rate: 64 Temperature: 97 F Mental Status: Alert & Oriented Pain level:: 2 Nausea and/or vomitting:: None Intake, IV Amount: 0 Hydration: Adequate
[2024-01-02 10:22] VITALS: BP 126/74; PULSE 64; RESP 17; TEMP 36.1; O2SAT 94
== END 2023-12-31 12:22 | disposition home or self-care (01) ==
PROVIDERS: PCP Family Medicine; Visit Provider Surgery
PROC: (CPT 49616; principal; 2023-12-31 09:30)
DX: K43.0 Incisional hernia with obstruction, without gangrene (principal)
CPT/HCPCS: 49616; 96374; J3490; C1781; J0690; J1100; J1885; J2250; J2405; J3010; J7120

== ENCOUNTER 2024-03-17 09:15 | Outpatient (CLI) | payer BC, OTHER, SELFPAY ==
[2024-03-17 10:37] LABS: Blood Urea Nitrogen 12 mg/dl (7-17); Estimated Glomerular Filt Rate 73 ml/min (>60); GFR (African American) 88 ML/MIN (>60)
== END 2024-03-17 23:59 | disposition home or self-care (01) ==
LOC: LAB 09:17
PROVIDERS: PCP Family Medicine; Visit Provider Surgery
DX: K42.9 Umbilical hernia without obstruction or gangrene (principal)
CPT/HCPCS: 36415; 82565; 84520

== ENCOUNTER 2024-03-28 07:41 | Outpatient (CLI) | payer BC, OTHER, SELFPAY ==
--- NOTE | 2024-03-28 07:42 | CT_ITS ---
FINAL REPORT TECHNIQUE: After the administration of oral and intravenous contrast, axial images were obtained through the abdomen and pelvis by computed tomography. Coronal and sagittal reconstructed images were obtained and reviewed. The study was performed with techniques to keep radiation dose as low as reasonably achievable, (ALARA). Individual dose reduction techniques using automated exposure control or adjustment of mA and/or kV according to the patient's size were employed. CLINICAL HISTORY: umbilical hernia oral and iv contrast hernia repair in Mar and Dec, COMPARISON: 09/21/2023 FINDINGS: Abdomen: There is scarring noted at the lung bases. The liver parenchyma is homogeneous and the liver measures up to 19 cm in craniocaudal dimension. The hepatic flexure is interposed into the right lobe of the liver. The gallbladder is present. The spleen appears unremarkable. The pancreas, adrenals, and kidneys appear unremarkable. There is a complex subcutaneous collection deep to the umbilicus. This collection demonstrates stranding, fluid, and a rounded area of relatively increased attenuation measuring up to 13 mm. The entire region measures 8.2 x 5.6 cm in craniocaudal and transverse dimensions. There is some protuberance of the midline anterior abdominal wall fascia deep to this collection. There is no definite herniation of bowel into this collection. There is no evidence of bowel obstruction. Pelvis: The appendix is not identified. The uterus is present. The urinary bladder is decompressed. There is no free fluid or adenopathy. IMPRESSION: Unusual complex subcutaneous collection at the site of the previously noted umbilical hernia. No definite herniation of bowel is seen on today's exam, but the appearance is unusual and chronic hematoma, abscess, and fat necrosis are all considerations. Surgical evaluation is recommended. Reviewed, Interpreted and Dictated by Aron Martel MD Transcribed by Jessica Epps Authenticated and . [facility]
[2024-03-28] MEDS: SODIUM CHLORIDE 0.9% 10ML SYR (RAD ONLY) 10 ML IV (08:14)
[2024-03-28] MEDS: IOPAMIDOL-370 (76%);100ML BOTTLE 75 ML IV (08:14)
[2024-03-28] MEDS: BARIUM SULFATE(READI-CAT2);450ML BOTTLE 450 ML PO (08:14)
== END 2024-03-28 23:59 | disposition home or self-care (01) ==
LOC: RAD 07:42
PROVIDERS: PCP Family Medicine; Visit Provider Surgery
DX: K42.9 Umbilical hernia without obstruction or gangrene (principal)
CPT/HCPCS: 74177; Q9967

== ENCOUNTER 2024-08-13 07:03 | Outpatient (CLI) | payer BC, OTHER, SELFPAY ==
[2024-08-13 08:06] LABS: Basophils % 0.7 % (0.1-2.0); Eosinophils # 0.2 Kmm3 (0.0-0.4); Eosinophils % 3.3 % (0.1-12.0); Hematocrit 46.3 % (37.0-47.0); Hemoglobin 15.3 g/dL (12.2-16.2); Immature Granulocytes # 0.03 10^3uL; Immature Granulocytes % 0.5 %; Lymphocytes # 2.1 K/mm3 (0.7-4.5); Lymphocytes % 38.4 % (10-50); Mean Corpuscular Hemoglobin 28.9 pg (27.0-31.2); Mean Corpuscular Volume 87.5 fl (81-99); Mean Platelet Volume 9.1 fl (7.4-10.4); Monocytes # 0.5 K/mm3 (0.1-1.0); Monocytes % 8.2 % (1.7-9.3); Neutrophils # 2.7 K/mm3 (1.8-7.8); Neutrophils % 48.9 % (37.0-80.0); Nucleated Red Blood Cells # 0 10^3/uL; Nucleated Red Blood Cells % 0 %; Platelet Count 275 K/mm3 (142-424); Red Blood Count 5.29 M/mm3 (4.20-5.40); Red Cell Distribution Width 13.2 % (11.5-17.5); Red Cell Distribution Width-SD 42.6 fL; White Blood Count 5.5 K/mm3 (4.8-10.8)
[2024-08-13 08:46] LABS: Albumin Level 4.1 g/dl (3.5-5.0); Chloride 105 mmol/L (98-107); Potassium 4.2 mmoL/L (3.5-5.1); Sodium 140 mmol/L (136-145)
[2024-08-13 08:49] LABS: Alanine Aminotransferase 18 U/L (12-78); Albumin/Globulin Ratio 1.1 (1.1-1.8); Alkaline Phosphatase 70 U/L (38-126); Anion Gap 7.2 mEq/L (5-15); Aspartate Amino Transferase 25 U/L (14-36); Bilirubin,Total 0.6 mg/dl (0.2-1.3); Blood Urea Nitrogen 13 mg/dl (7-17); Calcium 9.7 mg/dl (8.4-10.2); Carbon Dioxide 32 mmol/L (22.0-30.0); Cholesterol 175 mg/dl (140-200); Estimated Glomerular Filt Rate 73 ml/min (>60); GFR (African American) 88 ML/MIN (>60); Globulin 3.6 g/dL (1.3-3.2); Glucose 99 mg/dl (74-100); Total Protein,Serum 7.7 g/dl (6.3-8.2); Triglycerides 196 mg/dl (30-150); VLDL Cholesterol 39 mg/dL (0-40)
[2024-08-13 08:50] LABS: Chol/HDL Ratio 4.3 (1-3.5); HDL Cholesterol 41 mg/dl (40-60)
[2024-08-13 09:00] LABS: Direct LDL Cholesterol 85.59 mg/dL (100-129)
[2024-08-13 09:19] LABS: Thyroid Stimulating Hormone 2.13 uIU/mL (0.465-4.68)
== END 2024-08-13 23:59 | disposition home or self-care (01) ==
LOC: LAB 07:04
PROVIDERS: PCP Family Medicine; Visit Provider Family Medicine
DX: E78.5 Hyperlipidemia, unspecified (principal); E03.9 Hypothyroidism, unspecified; I10 Essential (primary) hypertension
CPT/HCPCS: 36415; 80053; 80061; 84443; 85025

== ENCOUNTER 2024-11-14 15:58 | Outpatient (CLI) | payer BC, OTHER, SELFPAY ==
--- NOTE | 2024-11-14 | MM_ITS ---
PROCEDURE INFORMATION: Exam: MG Bilateral Screening 3D Mammography Exam date and time: 11/14/2024 4:32 PM Age: 64 years old Clinical indication: Screening examination TECHNIQUE: Imaging protocol: Bilateral Screening tomosynthesis and 2D mammography including computer-aided detection (CAD) when performed. COMPARISON: MG MM DIG SCREENING MAMM BI W/CAD 01/05/2023 9:52 AM FINDINGS: MAMMOGRAPHY: Breast composition: There are scattered areas of fibroglandular density. Mass: None. Architectural distortion: None. Calcifications: No suspicious calcifications. Asymmetric density: None. Skin thickening: None. Axillary adenopathy: None. IMPRESSION: No mammographic evidence of malignancy. Annual screening is recommended unless otherwise clinically indicated. ASSESSMENT: BI-RADS Category 1: Negative.
== END 2024-11-14 23:59 | disposition home or self-care (01) ==
LOC: RAD 15:58
PROVIDERS: PCP Family Medicine; Visit Provider Family Medicine
DX: Z12.31 Encounter for screening mammogram for malignant neoplasm of breast (principal); R92.323 Mammographic fibroglandular density, bilateral breasts
CPT/HCPCS: 77063; 77067